=== PATIENT | male | born 1945 | race Caucasian/White ===

== ENCOUNTER 2017-08-19 08:56 | Outpatient (RCR) | payer MEDICARE, BC | END 2017-08-22 13:06 | LOC: OPPGERO 08:56 | DX: F41.1 Generalized anxiety disorder (principal); F33.9 Major depressive disorder, recurrent, unspecified; F42.9 Obsessive-compulsive disorder, unspecified; G31.09 Other frontotemporal neurocognitive disorder; F02.80 Dementia in other diseases classified elsewhere, unspecified severity, without behavioral disturbance, psychotic disturbance, mood disturbance, and anxiety; I10 Essential (primary) hypertension; G47.33 Obstructive sleep apnea (adult) (pediatric); E29.1 Testicular hypofunction; K21.9 Gastro-esophageal reflux disease without esophagitis; Z60.0 Problems of adjustment to life-cycle transitions; Z63.4 Disappearance and death of family member; Z79.82 Long term (current) use of aspirin; Z79.899 Other long term (current) drug therapy ==

== ENCOUNTER 2017-08-25 09:39 | Outpatient (RCR) | payer MEDICARE, BC | END 2017-09-23 14:18 | disposition still patient (30) | LOC: OPPGERO 09:39 | DX: F41.1 Generalized anxiety disorder (principal); F41.0 Panic disorder [episodic paroxysmal anxiety]; Z86.59 Personal history of other mental and behavioral disorders; Z63.79 Other stressful life events affecting family and household; Z79.899 Other long term (current) drug therapy ==

== ENCOUNTER 2017-09-24 09:30 | Outpatient (RCR) | payer MEDICARE, BC | END 2017-10-24 13:36 | LOC: OPPGERO 09:30 | DX: F41.1 Generalized anxiety disorder (principal); F33.9 Major depressive disorder, recurrent, unspecified; F42.9 Obsessive-compulsive disorder, unspecified; I10 Essential (primary) hypertension; G47.33 Obstructive sleep apnea (adult) (pediatric); E29.1 Testicular hypofunction; K21.9 Gastro-esophageal reflux disease without esophagitis; G31.09 Other frontotemporal neurocognitive disorder; F02.80 Dementia in other diseases classified elsewhere, unspecified severity, without behavioral disturbance, psychotic disturbance, mood disturbance, and anxiety; Z60.0 Problems of adjustment to life-cycle transitions; F43.20 Adjustment disorder, unspecified; Z79.82 Long term (current) use of aspirin; Z79.899 Other long term (current) drug therapy ==

== ENCOUNTER 2017-10-28 09:16 | Outpatient (RCR) | payer MEDICARE, BC | END 2017-11-21 13:57 | LOC: OPPGERO 09:16 | DX: F41.1 Generalized anxiety disorder (principal); F33.9 Major depressive disorder, recurrent, unspecified; F42.9 Obsessive-compulsive disorder, unspecified; I10 Essential (primary) hypertension; G47.33 Obstructive sleep apnea (adult) (pediatric); E29.1 Testicular hypofunction; K21.9 Gastro-esophageal reflux disease without esophagitis; G31.09 Other frontotemporal neurocognitive disorder; F02.80 Dementia in other diseases classified elsewhere, unspecified severity, without behavioral disturbance, psychotic disturbance, mood disturbance, and anxiety; Z60.0 Problems of adjustment to life-cycle transitions; Z63.4 Disappearance and death of family member; Z79.82 Long term (current) use of aspirin; Z79.899 Other long term (current) drug therapy ==

== ENCOUNTER 2017-11-24 09:34 | Outpatient (RCR) | payer MEDICARE, BC | END 2017-12-24 14:17 | LOC: OPPGERO 09:34 | DX: F41.1 Generalized anxiety disorder (principal); F33.9 Major depressive disorder, recurrent, unspecified; F42.9 Obsessive-compulsive disorder, unspecified; I10 Essential (primary) hypertension; G47.33 Obstructive sleep apnea (adult) (pediatric); E29.1 Testicular hypofunction; K21.9 Gastro-esophageal reflux disease without esophagitis; G31.09 Other frontotemporal neurocognitive disorder; F02.80 Dementia in other diseases classified elsewhere, unspecified severity, without behavioral disturbance, psychotic disturbance, mood disturbance, and anxiety; Z60.0 Problems of adjustment to life-cycle transitions; Z72.89 Other problems related to lifestyle; Z79.82 Long term (current) use of aspirin; Z79.899 Other long term (current) drug therapy ==

== ENCOUNTER 2017-12-25 09:47 | Outpatient (RCR) | payer MEDICARE, BC | END 2018-01-23 15:17 | LOC: OPPGERO 09:47 | DX: F41.1 Generalized anxiety disorder (principal); F33.9 Major depressive disorder, recurrent, unspecified; F42.9 Obsessive-compulsive disorder, unspecified; I10 Essential (primary) hypertension; G47.33 Obstructive sleep apnea (adult) (pediatric); E29.1 Testicular hypofunction; K21.9 Gastro-esophageal reflux disease without esophagitis; G31.09 Other frontotemporal neurocognitive disorder; F02.80 Dementia in other diseases classified elsewhere, unspecified severity, without behavioral disturbance, psychotic disturbance, mood disturbance, and anxiety; Z60.0 Problems of adjustment to life-cycle transitions; Z63.79 Other stressful life events affecting family and household; Z79.82 Long term (current) use of aspirin; Z79.899 Other long term (current) drug therapy ==

== ENCOUNTER 2018-01-26 08:50 | Outpatient (RCR) | payer MEDICARE, BC | END 2018-02-23 12:13 | LOC: OPPGERO 08:50 | DX: F41.1 Generalized anxiety disorder (principal); F33.9 Major depressive disorder, recurrent, unspecified; F42.9 Obsessive-compulsive disorder, unspecified; I10 Essential (primary) hypertension; G47.33 Obstructive sleep apnea (adult) (pediatric); N52.9 Male erectile dysfunction, unspecified; K21.9 Gastro-esophageal reflux disease without esophagitis; G31.09 Other frontotemporal neurocognitive disorder; F02.80 Dementia in other diseases classified elsewhere, unspecified severity, without behavioral disturbance, psychotic disturbance, mood disturbance, and anxiety; Z60.0 Problems of adjustment to life-cycle transitions; Z63.8 Other specified problems related to primary support group; F48.8 Other specified nonpsychotic mental disorders; Z79.82 Long term (current) use of aspirin; Z79.899 Other long term (current) drug therapy ==

== ENCOUNTER 2018-02-25 10:03 | Outpatient (RCR) | payer MEDICARE, BC | END 2018-03-26 13:33 | LOC: OPPGERO 10:03 | DX: F41.1 Generalized anxiety disorder (principal); F33.9 Major depressive disorder, recurrent, unspecified; F42.9 Obsessive-compulsive disorder, unspecified; I10 Essential (primary) hypertension; G47.33 Obstructive sleep apnea (adult) (pediatric); E29.1 Testicular hypofunction; K21.9 Gastro-esophageal reflux disease without esophagitis; G31.09 Other frontotemporal neurocognitive disorder; F02.80 Dementia in other diseases classified elsewhere, unspecified severity, without behavioral disturbance, psychotic disturbance, mood disturbance, and anxiety; Z60.0 Problems of adjustment to life-cycle transitions; Z79.82 Long term (current) use of aspirin; Z79.899 Other long term (current) drug therapy ==

== ENCOUNTER 2018-03-27 08:54 | Outpatient (RCR) | payer MEDICARE, BC | END 2018-04-23 13:45 | LOC: OPPGERO 08:54 | DX: F41.1 Generalized anxiety disorder (principal); F33.9 Major depressive disorder, recurrent, unspecified; I10 Essential (primary) hypertension; G47.33 Obstructive sleep apnea (adult) (pediatric); N40.0 Benign prostatic hyperplasia without lower urinary tract symptoms; E29.1 Testicular hypofunction; K21.9 Gastro-esophageal reflux disease without esophagitis; G31.09 Other frontotemporal neurocognitive disorder; F02.80 Dementia in other diseases classified elsewhere, unspecified severity, without behavioral disturbance, psychotic disturbance, mood disturbance, and anxiety; Z79.82 Long term (current) use of aspirin; Z79.899 Other long term (current) drug therapy; Z60.0 Problems of adjustment to life-cycle transitions; Z63.4 Disappearance and death of family member ==

== ENCOUNTER 2018-04-24 14:10 | Outpatient (RCR) | payer MEDICARE, BC | END 2018-05-22 15:25 | LOC: OPPGERO 14:10 | DX: F33.0 Major depressive disorder, recurrent, mild (principal); F41.1 Generalized anxiety disorder; F42.8 Other obsessive-compulsive disorder; I10 Essential (primary) hypertension; G47.33 Obstructive sleep apnea (adult) (pediatric); K21.9 Gastro-esophageal reflux disease without esophagitis; E29.1 Testicular hypofunction; G31.09 Other frontotemporal neurocognitive disorder; F02.80 Dementia in other diseases classified elsewhere, unspecified severity, without behavioral disturbance, psychotic disturbance, mood disturbance, and anxiety; G31.84 Mild cognitive impairment of uncertain or unknown etiology ==